=== PATIENT | female | born 1980 | race Caucasian/White ===

== ENCOUNTER 2019-10-06 11:02 | Emergency (ER) | payer OTHER, MEDICAID, SELFPAY ==
[2019-10-06 11:21] VITALS: BP 130/88; PULSE 87; RESP 13; TEMP 36.2; O2SAT 100
--- NOTE | 2019-10-06 12:13 | PC.NURSE ---
Patient reports going to schedule appointment on saturday and was told I don't feel comfortable seeing you by her therapist. patient reports this set her off I was raging in my head but frozen still Patient expresses feeling frustrated with mental health services and that her needs are out of their scope. Patient states she has these jittery episodes that make me feel like I can't even stand myself the only thing that helps me is alcohol which I can't have since I am a recovering addict
--- NOTE | 2019-10-06 12:25 | PC.NURSE ---
Patient aunt at bedside. patient denies SI/HI
[2019-10-06] MEDS: hydrOXYzine pamoate 25 MG CAPSULE 50 MG PO (12:31)
--- NOTE | 2019-10-06 13:25 | ED_ITS ---
HPI - Psych <CLIVE Naqvi-BC - Last Filed: 10/06/19 17:11> General Chief Complaint: Psychiatric Symptoms Stated Complaint: mental health Time Seen by Provider: 10/06/19 11:44 Source: patient Mode of arrival: Ambulatory Limitations: no limitations History of Present Illness HPI Narrative: The patient is a 39-year-old female with history of generalized anxiety disorder and panic attacks who presents with a chief complaint of severe panic attack for the past few days. She states that she was turned away from her counselors on Saturday, and since then she has been shaking, difficulty remembering things etcetera. She has not followed up with primary care provider. She tried taking with her counselor today. She would like some resources and different mental health resources as she does not want to get prescriptions from her current provider at [place]. She denies any thoughts of hurting herself or anybody else. She has not taken anything for anxiety. She denies any hallucinations, but states that when she is in a panic mode she cannot move and sees herself doing things. Related Data Home Medications Medication Instructions Recorded Confirmed albuterol sulfate 1 inh INHALATION DIRECTED 10/06/19 10/06/19 buspirone 15 mg PO DAILY 10/06/19 10/06/19 doxepin 20 mg PO DAILY 10/06/19 sertraline 50 mg PO DAILY 10/06/19 10/06/19 sumatriptan succinate 50 mg PO PRN PRN 10/06/19 10/06/19 topiramate 100 mg PO DAILY 10/06/19 10/06/19 Previous Rx's Medication Instructions Recorded hydroxyzine HCl 50 mg PO TID PRN #20 tab 10/06/19 Review of Systems <CLIVE Naqvi-BC - Last Filed: 10/06/19 17:11> Review of Systems Narrative: GENERAL: Denies chills, fatigue, malaise, fever, sweats. HEENT: Denies sinus pain, ear pain, sore throat, difficulty swallowing, dizziness. RESPIRATORY: Denies dyspnea, cough, wheezing, hemoptysis, sputum. CARDIOVASCULAR: Denies chest pain, palpitations, orthopnea, edema, GASTROINTESTINAL: Denies nausea, vomiting, abdominal pain, diarrhea, constipation, melena. : Denies dysuria, frequency, incontinence, hematuria, urinary retention. MUSCULOSKELETAL: denies weakness, joint pain, or bony pain SKIN: Denies rash, skin lesions, or other NEUROLOGIC: Denies weakness, headache, numbness, change in speech, confusion, seizures, incoordination. PSYCHIATRIC: See HPI 12 point review of systems is negative except for those stated above Patient History <Margarita CandelarioCLIVE- - Last Filed: 10/06/19 17:11> Social History Smoking Status: Current some day smoker Smoking Status: Current some day smoker alcohol intake frequency: other Substance Use Type: marijuana Exam <[facility] - Last Filed: 10/06/19 17:11> Narrative Exam Narrative: GENERAL: This is a well-nourished, well-developed patient, in no acute distress HEAD: Atraumatic. Normocephalic. No temporal or scalp tenderness. EYES: Pupils equal round and reactive. Extraocular motions intact. No scleral icterus. No injection or drainage. ENT: Nose without bleeding, purulent drainage or septal hematoma. Throat without erythema, tonsillar hypertrophy or exudate. Uvula midline. Airway patent. NECK: Trachea midline. No JVD or lymphadenopathy. Supple, nontender, no meningeal signs. CARDIOVASCULAR: Regular rate and rhythm RESPIRATORY: No cough. No increased respiratory effort. No accessory muscle use. EXTREMITIES: No clubbing, cyanosis, or edema. No joint tenderness, effusion, or edema noted. Steady gait. Using all extremities equally. BACK: Nontender without deformity or crepitance. No flank tenderness. NEURO: AOx3. Interactive, age appropriate, clear logical thought process SKIN: No rash or erythema on visible skin Initial Vital Signs Initial Vital Signs: Vital Signs Temperature 97.1 F L 10/06/19 11:21 Pulse Rate 87 10/06/19 11:21 Respiratory Rate 13 10/06/19 11:21 Blood Pressure 130/88 10/06/19 11:21 Pulse Oximetry 100 10/06/19 11:21 <Melisa Rocha DO - Last Filed: 10/07/19 07:21> Initial Vital Signs Initial Vital Signs: Vital Signs Temperature 97.1 F L 10/06/19 11:21 Pulse Rate 87 10/06/19 11:21 Respiratory Rate 13 10/06/19 11:21 Blood Pressure 130/88 01/21/20 11:21 Pulse Oximetry 100 10/06/19 11:21 Scores <Margarita CLIVE Candelario-BC - Last Filed: 10/06/19 17:11> GCS [place] coma scale eye opening: Spontaneous Alphonso coma scale verbal response: Orientated Alphonso coma scale motor response: Obey commands [place] coma scale total score: 15 Course <CLIVE Naqvi-BC - Last Filed: 10/06/19 17:11> Orders Ordered: Discontinued Medications Hydroxyzine Pamoate (Vistaril) 50 mg PO NOW ONE Stop: 10/06/19 12:11 Last Admin: 10/06/19 12:31 Dose: 50 mg Documented by: JOSIAH Vital Signs Vital signs: Vital Signs - 8 hr 10/06/19 11:21 Temperature 97.1 F L Pulse Rate 87 Respiratory Rate 13 Blood Pressure 130/88 Pulse Oximetry 100 <Melisa Rocha DO - Last Filed: 10/07/19 07:21> Orders Ordered: Discontinued Medications Hydroxyzine Pamoate (Vistaril) 50 mg PO NOW ONE Stop: 10/06/19 12:11 Last Admin: 10/06/19 12:31 Dose: 50 mg Documented by: JOSIAH Vital Signs Vital signs: Vital Signs - 8 hr 10/06/19 11:21 Temperature 97.1 F L Pulse Rate 87 Respiratory Rate 13 Blood Pressure 130/88 Pulse Oximetry 100 MDM - Psych <Margarita CLIVE Candelario- - Last Filed: 10/06/19 17:11> Differential Diagnosis Differential diagnosis: Likely acute psychosis, suicidal ideation, bipolar disorder, depression and acute anxiety MDM Narrative Medical decision making narrative: The patient is a 39-year-old female who presents with a chief complaint of anxiety and mental health concerns.. She d enies any suicide ideation, homicidal ideation etcetera but is looking for resources. We did do a dose of Vistaril which seemed to help her anxiety emergency department greatly. She was given resources and met with a social work administrator. She states that she felt the visit very helpful today. Who cleared for discharge. Discussed at length coming back to ER for acute concerns such as thoughts of hurting herself or anybody else. Patient has no questions or concerns upon discharge and states understanding return precautions as well as follow-up care. She was discharged to her aunt, whom she lives with Discharge Plan Departure Patient Disposition: Home Clinical Impression: Anxiety Discharge Date/Time: 10/06/19 16:04 Instructions: DI for Anxiety -- Adult Activity Restrictions/Additional Instructions: Thank you for trusting us with your care today Please follow through on the recommendations made by our social work administrator. I have sent a prescription of hydroxyzine to [facility] in [place] Please come back to the emergency department for any acute concerns such as thoughts of hurting herself or anybody else. Please follow-up with primary care provider in the next few days. I've also given you contact information for the [facility] human resources talent manager as they can be helpful in finding resources Prescriptions: New hydroxyzine HCl 50 mg tablet 50 mg PO TID PRN (Reason: anxiety) Qty: 20 RF: 0 No Action buspirone 5 mg tablet 15 mg PO DAILY RF: 0 sumatriptan succinate 50 mg tablet 50 mg PO PRN PRN (Reason: Migraine Headache) RF: 0 doxepin 10 mg capsule 20 mg PO DAILY RF: 0 albuterol sulfate 90 mcg/actuation HFA aerosol inhaler 1 inh INHALATION DIRECTED RF: 0 topiramate 100 mg tablet 100 mg PO DAILY RF: 0 sertraline 50 mg tablet 50 mg PO DAILY RF: 0 Referrals: [facility] [Outside] Lori Villeda ARNP [Primary Care Provider] -
== END 2019-10-06 16:04 | disposition home or self-care (01) ==
PROVIDERS: Emergency Provider Nurse Practitioner Family; PCP Nurse Practitioner Gerontology
DX: F41.9 Anxiety disorder, unspecified (principal)
CPT/HCPCS: 99283; 99284

== ENCOUNTER 2021-02-01 14:07 | Emergency (ER) | payer OTHER, MEDICAID, SELFPAY ==
[2021-02-01 14:40] VITALS: BP 125/52; PULSE 92; RESP 18; TEMP 37.7; O2SAT 99; BMI 32.3
[2021-02-01] MEDS: ONDANSETRON 4 MG/2 ML INJ IV (14:56)
[2021-02-01 14:58] LABS: Add Manual Diff / Slide Review NO; Basophils Absolute Auto 0 /uL (0-100); Basophils Percent Auto 0.4 % (0-2); Eosinophils Absolute Auto 200 /uL (0-450); Eosinophils Percent Auto 2.9 % (2-4); Hematocrit 45.1 % (36-46); Hemoglobin 15.1 g/dL (12.0-16.0); Lymphocytes Absolute Auto 1900 /uL (1100-4500); Lymphocytes Percent Auto 23.2 % (25-40); Mean Corpuscular HGB Conc 33.5 % (30-36); Mean Corpuscular Hemoglobin 28.5 PG (26-34); Mean Corpuscular Volume 85.2 fL (80-100); Monocytes Absolute Auto 500 /uL (0-900); Monocytes Percent Auto 5.8 % (3-14); Neutrophils Absolute Auto 5700 /uL (1500-7000); Neutrophils Percent Auto 67.7 % (50-75); Platelet Count 258 X10^3/uL (150-400); Red Cell Distribution Width 13.1 % (11.6-14.8); White Blood Cell Count 8.4 X10^3/uL (4.5-11.0)
[2021-02-01] MEDS: KETOROLAC 30 MG/ML VIAL IV (15:02)
[2021-02-01 15:12] LABS: INR 1.1 (0.9-1.3); Prothrombin Time 12.6 SECONDS (10.1-12.7)
[2021-02-01 15:15] LABS: PTT Partial Thromboplastin Tim 35 SECONDS (26.4-36.2)
[2021-02-01] MEDS: SODIUM CHLORIDE 0.9% 1,000 ML 1000 ML IV (15:16)
[2021-02-01 15:17] LABS: Alanine Aminotransferase 11 IU/L (<35); Albumin 4.5 g/dL (3.5-5.0); Albumin Globulin Ratio 1.4 (1.0-2.8); Alkaline Phosphatase 88 U/L (38-126); Aspartate Aminotransferase 21 IU/L (14-36); BUN Creatinine Ratio 12.4 (6-22); Bilirubin Total 0.7 mg/dL (0.2-1.3); Blood Urea Nitrogen 15 mg/dL (7-17); Calcium 9.6 mg/dL (8.4-10.2); Carbon Dioxide 24 mmol/L (22-32); Chloride 106 mmol/L (98-107); Estimated Glomerular Filt Rate 49.3 mL/min (>60); Globulin 3.3 g/dL (1.7-4.1); Glucose 85 mg/dL (70-100); HEMOLYSIS < 15 (0-50); Lipase 20 U/L (23-300); Potassium 3.8 mmol/L (3.4-5.1); Sodium 139 mmol/L (137-145); Total Protein 7.8 g/dL (6.3-8.2)
[2021-02-01 15:20] VITALS: BP 127/78; PULSE 77; RESP 18; O2SAT 99
[2021-02-01 15:30] VITALS: BP 115/70; PULSE 82; RESP 18; O2SAT 98
[2021-02-01 16:00] VITALS: BP 115/70; PULSE 85; O2SAT 100
[2021-02-01 16:24] VITALS: BP 118/69; PULSE 86; O2SAT 99
--- NOTE | 2021-02-01 16:44 | ED_ITS ---
HPI - General Adult General Chief complaint: Abdominal Pain Stated complaint: lower right abdominal pain Time Seen by Provider: 02/01/21 15:48 Source: patient Mode of arrival: Ambulatory Limitations: no limitations History of Present Illness HPI narrative: Patient is a 40-year-old female here for evaluation of a sudden onset of right-sided flank pain that radiated down to right side of her groin. This occurred when she sat down to urinate. She has had a kidney stone in the past and was several years ago when she felt this was very similar to that although the last time she did not have the pain in her right abdomen. She received Toradol and Zofran prior to my evaluation and she states this helped her symptoms tremendously. She does have dark colored urine but otherwise no other urinary symptoms. Related Data Home Medications Medication Instructions Recorded Confirmed albuterol sulfate 1 inh INHALATION DIRECTED 10/06/19 10/06/19 buspirone 15 mg PO DAILY 10/06/19 10/06/19 doxepin 20 mg PO DAILY 10/06/19 sertraline 50 mg PO DAILY 10/06/19 10/06/19 sumatriptan succinate 50 mg PO PRN PRN 10/06/19 10/06/19 topiramate 100 mg PO DAILY 10/06/19 10/06/19 Previous Rx's Medication Instructions Recorded hydroxyzine HCl 50 mg PO TID PRN #20 tab 10/06/19 ibuprofen 600 mg PO TID PRN #60 tab 02/01/21 ondansetron 4 mg PO Q6H PRN #10 tab 02/01/21 Allergies Allergy/AdvReac Type Severity Reaction Status Date / Time sulfamethoxazole Allergy Verified 02/01/21 14:40 [From ] trimethoprim [From ] Allergy Verified 02/01/21 14:40 fluoxetine AdvReac Verified 02/01/21 14:40 Review of Systems Constitutional Constitutional: Denies fever(s) and Denies headache(s) ENT Ears, Nose, Mouth, and Throat: Denies headache(s) Cardiovascular Cardiovascular: Denies chest pain and Denies dyspnea Respiratory Respiratory: Denies dyspnea Gastrointestinal Gastrointestinal: Reports abdominal pain, Denies change in bowel habits, Reports nausea and Denies vomiting Genitourinary Genitourinary: Reports system reviewed and no additional complaints, except as documented Musculoskeletal Musculoskeletal: Reports back pain (Right flank) Integumentary/Breasts Skin/Breast: Denies rash Neurologic Neurologic: Reports system reviewed and no additional complaints, except as documented and Denies headache(s) Hematologic/Lymphatic On Anticoagulants: No Allergic/Immunologic Allergic/Immunologic: Reports system reviewed and no additional complaints, except as documented Patient History Medical History Kidney stones Social History Smoking Status: Current some day smoker Smoking Status: Current some day smoker alcohol intake frequency: other Substance Use Type: marijuana Exam Initial Vital Signs Initial Vital Signs: Vital Signs Temperature 100 F H 02/01/21 14:40 Pulse Rate 92 H 02/01/21 14:40 Respiratory Rate 18 02/01/21 14:40 Blood Pressure 125/52 L 02/01/21 14:40 Pulse Oximetry 99 02/01/21 14:40 Const General: cooperative and comfortable Limitations: mental status not altered HENMT Head: normal to inspection and normocephalic Resp Effort & Inspection: normal respiratory effort Auscultation: clear to auscultation bilaterally Cardio Rate: regular rate Rhythm: regular rhythm GI Inspection: non-distended Palpation: soft and No tender Back/Spine/Pelvis Back: No CVA tenderness Skin Lesions: no lesions Rashes: no rashes Neuro General: patient alert and patient awake Cognition: normal cognition Speech: speech normal Extrem General: normal to inspection and capillary refill normal Psych Appearance: grossly normal and well kempt Course Orders Ordered: ED Orders 02/01/21 14:49 Complete Blood Count AUTO DIFF Stat Comprehensive Metabolic Panel Stat Lipase Stat Partial Thromboplastin Time Stat Prothrombin Time INR Stat 02/01/21 16:30 Urine Culture Stat Urine Microscopic Stat Discontinued Medications Sodium Chloride (Normal Saline 0.9%) 1,000 mls @ 1,000 mls/hr IV BOLUS ONE Stop: 02/01/21 16:15 Last Infusion: 02/01/21 16:11 Dose: 0 mls/hr Documented by: Admin: 02/01/21 15:16 Dose: 1,000 mls/hr Documented by: YUE Ketorolac Tromethamine (Ketorolac 30 Mg/Ml Vial) 30 mg IV NOW ONE Stop: 02/01/21 14:59 Last Admin: 02/01/21 15:02 Dose: 30 mg Documented by: MILO Ondansetron HCl (Ondansetron 4 Mg/2 Ml Inj) 4 mg IV NOW ONE Stop: 02/01/21 14:45 Last Admin: 02/01/21 14:56 Dose: 4 mg Documented by: YUE Vital Signs Vital signs: Vital Signs - 8 hr 02/01/21 14:40 02/01/21 15:20 02/01/21 15:30 Temperature 100 F H Pulse Rate 92 H 77 82 Respiratory Rate 18 18 18 Blood Pressure 125/52 L 127/78 115/70 Pulse Oximetry 99 99 98 02/01/21 16:00 02/01/21 16:24 Temperature Pulse Rate 85 86 Respiratory Rate Blood Pressure 115/70 118/69 Pulse Oximetry 100 99 Medical Decision Making Lab Data Lab results reviewed: Yes I reviewed the patient's lab results. Result diagrams: 02/01/21 14:49 02/01/21 14:49 Labs: Lab Results 02/01/21 02/01/21 02/01/21 Range/Units 14:49 14:49 14:49 WBC 8.4 (4.5-11.0) X10^3/uL RBC 5.30 H (4.0-5.2) X10^6/uL Hgb 15.1 (12.0-16.0) g/dL Hct 45.1 (36-46) % MCV 85.2 (80-100) fL MCH 28.5 (26-34) PG MCHC 33.5 (30-36) % RDW 13.1 (11.6-14.8) % Plt Count 258 (150-400) X10^3/uL Neut % (Auto) 67.7 (50-75) % Lymph % (Auto) 23.2 L (25-40) % [place] % (Auto) 5.8 (3-14) % Eos % (Auto) 2.9 (2-4) % Baso % (Auto) 0.4 (0-2) % Neut # (Auto) 5700 (0359-9690) /uL Lymph # (Auto) 1900 (6129-5453) /uL [place] # (Auto) 500 (0-900) /uL Eos # (Auto) 200 (0-450) /uL Baso # (Auto) 0 (0-100) /uL PT 12.6 (10.1-12.7) SECONDS INR 1.1 (0.9-1.3) APTT 35 (26.4-36.2) SECONDS Sodium 139 (137-145) mmol/L Potassium 3.8 (3.4-5.1) mmol/L Chloride 106 (98-107) mmol/L Carbon Dioxide 24 (22-32) mmol/L BUN 15 (7-17) mg/dL Creatinine 1.21 H (0.52-1.04) mg/dL Estimated GFR 49.3 L (>60) mL/min BUN/Creatinine Ratio 12.4 (6-22) Glucose 85 (70-100) mg/dL Calcium 9.6 (8.4-10.2) mg/dL Total Bilirubin 0.7 (0.2-1.3) mg/dL AST 21 (14-36) IU/L ALT 11 (<35) IU/L Alkaline Phosphatase 88 (38-126) U/L Total Protein 7.8 (6.3-8.2) g/dL Albumin 4.5 (3.5-5.0) g/dL Globulin 3.3 (1.7-4.1) g/dL Albumin/Globulin Ratio 1.4 (1.0-2.8) Lipase 20 L (23-300) U/L Urine RBC (0-5/HPF) Urine WBC (0-5/HPF) Ur Squamous Epith Cells (0-5/HPF) Ur Transition Epith Cell (0-5/HPF) Calcium Oxalate Crystal Urine Bacteria (None) Hyaline Casts (None) Urine Mucus (Negative) Ur Culture Indicated? 02/01/21 Range/Units 16:30 WBC (4.5-11.0) X10^3/uL RBC (4.0-5.2) X10^6/uL Hgb (12.0-16.0) g/dL Hct (36-46) % MCV (80-100) fL MCH (26-34) PG MCHC (30-36) % RDW (11.6-14.8) % Plt Count (150-400) X10^3/uL Neut % (Auto) (50-75) % Lymph % (Auto) (25-40) % [place] % (Auto) (3-14) % Eos % (Auto) (2-4) % Baso % (Auto) (0-2) % Neut # (Auto) (1070-7560) /uL Lymph # (Auto) (9572-3648) /uL [place] # (Auto) (0-900) /uL Eos # (Auto) (0-450) /uL Baso # (Auto) (0-100) /uL PT (10.1-12.7) SECONDS INR (0.9-1.3) APTT (26.4-36.2) SECONDS Sodium (137-145) mmol/L Potassium (3.4-5.1) mmol/L Chloride (98-107) mmol/L Carbon Dioxide (22-32) mmol/L BUN (7-17) mg/dL Creatinine (0.52-1.04) mg/dL Estimated GFR (>60) mL/min BUN/Creatinine Ratio (6-22) Glucose (70-100) mg/dL Calcium (8.4-10.2) mg/dL Total Bilirubin (0.2-1.3) mg/dL AST (14-36) IU/L ALT (<35) IU/L Alkaline Phosphatase (38-126) U/L Total Protein (6.3-8.2) g/dL Albumin (3.5-5.0) g/dL Globulin (1.7-4.1) g/dL Albumin/Globulin Ratio (1.0-2.8) Lipase (23-300) U/L Urine RBC 30-100/hpf H (0-5/HPF) Urine WBC 10-30/hpf H (0-5/HPF) Ur Squamous Epith Cells 1-5 /hpf (0-5/HPF) Ur Transition Epith Cell 1-5/hpf (0-5/HPF) Calcium Oxalate Crystal Few H Urine Bacteria Moderate (10-30) H (None) Hyaline Casts 10-30/lpf (None) Urine Mucus 1+ H (Negative) Ur Culture Indicated? Specimen cultured Point of Care Testing Test Results Negative Urine Dip Bedside Urine Glucose Negative Bedside Urine Bilirubin - Negative Bedside Urine Ketone - Negative Urine Specific [place] 1.025 Bedside Urine Occult Blood +++ Bedside Urine pH 6 Bedside Urine Protein + 30 Bedside Urine Urobilinogen - Negative Bedside Urine Nitrite - Negative Bedside Urine Leukocytes ++ 125 Esterase Point of care testing: Point of Care Testing Test Results Negative Urine Dip Bedside Urine Glucose Negative Bedside Urine Bilirubin - Negative Bedside Urine Ketone - Negative Urine Specific [place] 1.025 Bedside Urine Occult Blood +++ Bedside Urine pH 6 Bedside Urine Protein + 30 Bedside Urine Urobilinogen - Negative Bedside Urine Nitrite - Negative Bedside Urine Leukocytes ++ 125 Esterase MDM Narrative Medical decision making narrative: Patient's symptoms seem to have resolved/improved after the Toradol and the Zofran. She states that the pain that she had in her right back felt very similar to the kidney stone that she had several years ago. She does have dark colored urine but otherwise no dysur ia. Has bacteria in her urine and white blood cells although also has epi cells. Had a discussion with her regarding her symptoms. I do suspect that her presentation today is related to renal colic given her presentation. Informed her that we could obtain a CT scan to confirm this or we can go off of her history and physical and assume that it is a kidney stone although we may be missing other intra-abdominal issues. She did expressed understanding of this and after this discussion we will hold on any CT scan. We did discuss her urine results. Plan will be is to hold on any antibiotics until the culture results and we will contact her if we need to start any. She was given return pre cautions and follow-up instructions. She expressed understanding and agreement this plan. Discharge Plan Departure Patient Disposition: Home Clinical Impression: Abdominal pain Instructions: Kidney Stones -- Adult, DI for Abdominal Pain-Adult Activity Restrictions/Additional Instructions: Your presentation today is very consistent with a kidney stone and I suggest that we treated as such. Despite this if your symptoms worsen or if you develop fevers or worsening pain or change in pain or inability to urinate please return to the emergency department for further evaluation. Contact your primary provider for follow-up. Prescriptions: New ondansetron 4 mg tablet,disintegrating 4 mg PO Q6H PRN (Reason: nausea and vomiting) Qty: 10 RF: 0 ibuprofen 600 mg tablet 600 mg PO TID PRN (Reason: pain) Qty: 60 RF: 0 No Action buspirone 5 mg tablet 15 mg PO DAILY RF: 0 sumatriptan succinate 50 mg tablet 50 mg PO PRN PRN (Reason: Migraine Headache) RF: 0 doxepin 10 mg capsule 20 mg PO DAILY RF: 0 albuterol sulfate 90 mcg/actuation HFA aerosol inhaler 1 inh INHALATION DIRECTED RF: 0 topiramate 100 mg tablet 100 mg PO DAILY RF: 0 sertraline 50 mg tablet 50 mg PO DAILY RF: 0 hydroxyzine HCl 50 mg tablet 50 mg PO TID PRN (Reason: anxiety) Qty: 20 RF: 0 Referrals: Lori Villeda ARNP [Primary Care Provider] -
[2021-02-01 17:22] LABS: Bacteria Urine Moderate (10-30); Calcium Oxalate Crystals Urine Few; Culture Indicated Urine Specimen Cultured; Hyaline Casts Urine 10-30/LPF; Mucus Urine 1+ (Negative); RBC Urine 30-100/HPF (0-5/HPF); Squamous Epithelial Cell Urine 1-5 /HPF (0-5/HPF); Transitional Epi Cells Urine 1-5/HPF (0-5/HPF); WBC Urine 10-30/HPF (0-5/HPF)
== END 2021-02-01 16:46 | disposition home or self-care (01) ==
PROVIDERS: Emergency Medicine; Emergency Provider Emergency Medicine; PCP Nurse Practitioner Gerontology
DX: R10.9 Unspecified abdominal pain (principal); R11.0 Nausea; Z87.442 Personal history of urinary calculi
CPT/HCPCS: 36415; 80053; 81003; 81015; 81025; 83690; 85025; 85610; 85730; 87077; 87086; 87186; 96361; 96374; 96375; 99284; J1885; J2405

== ENCOUNTER → 2023-11-27 10:01 | Outpatient (CLI) | payer OTHER, SELFPAY ==
--- NOTE | 2023-11-27 10:08 | DI.RAD.S_ITS ---
PROCEDURE: XR HIP W PEL IF DONE MADIHA MIN 4V INDICATIONS: HIP PAIN TECHNIQUE: AP pelvis with lateral view(s) of the bilateral hip(s). COMPARISON: None. FINDINGS: Bones: Mild bilateral hip arthrosis. Mild degenerative changes also seen at the pubic symphysis. No displaced fracture or dislocation. Soft tissues: No suspicious calcifications. IMPRESSION: Mild bilateral hip arthrosis. If there is high concern for further derangement, consider MRI evaluation. Dictated by: Jair Christianson M.D. on 11/27/2023 at 13:19 Approved by: Jair Christianson M.D. on 11/27/2023 at 13:20
== END ==
LOC: RAD 10:06
PROVIDERS: PCP Family Medicine; Referring Provider Internal Medicine Cardiovascular Disease; Visit Provider Internal Medicine Cardiovascular Disease
DX: M16.0 Bilateral primary osteoarthritis of hip (principal); M25.559 Pain in unspecified hip
CPT/HCPCS: 73522